=== PATIENT | male | born 1960 | race Caucasian/White ===

== ENCOUNTER 2016-09-04 08:43 | Inpatient (IN) | payer BC ==
[~2016-09-04] VITALS: Ht 182.9 cm; Wt 88.2 kg
[2016-09-04 10:02] VITALS: BP 116/75; BMI 26.5
--- NOTE | 2016-09-04 14:07 | HP ---
PATIENT: CARI YOUNGBLOOD JR MEDICAL RECORD: [id number] ACCOUNT: [id number] LOCATION:D.[id number] : 58 ADMISSION DATE: 09/04/16 HISTORY AND PHYSICAL EXAMINATION Preoperative History and Physical HISTORY OF PRESENT ILLNESS: Mr. 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 He is being admitted for left partial glossectomy and left supraomohyoid neck dissection. PAST MEDICAL HISTORY: Otherwise fairly negative. He does have some hyperlipidemia. SOCIAL HISTORY: He is a smoker and does drink alcohol. PAST SURGICAL HISTORY: None known. ALLERGIES: No known drug allergies. PHYSICAL EXAMINATION: GENERAL: He is a healthy-appearing male. FACE: Normal and symmetric. No lesions. EYES: Sclerae and conjunctivae are normal. ORAL CAVITY AND OROPHARYNX: He has an exophytic lesion on the left lateral tongue. NECK: No masses, no adenopathy. CHEST: Clear. CARDIOVASCULAR: Regular rate and rhythm, no murmur. EXTREMITIES: Normal. DIAGNOSTIC DATA: CT scan does show some prominent level 1 and 2 cervical adenopathy, nothing distinctly pathologic. IMPRESSION: Invasive squamous cell carcinoma of the left lateral tongue. PLAN: Left partial glossectomy, left supraomohyoid neck dissection. TRANSINT:[id number] Voice Confirmation ID: [id number] DOCUMENT ID: [id number] ARCELIA KU MD at 1407 CC: [id number] DICTATION DATE: 09/01/16 1009 RN DIABETES EDUCATOR: 09/01/16 1341 ADM IN [facility] [place] [id number] [place] [address]
[2016-09-04 14:21] VITALS: BP 129/84
--- NOTE | 2016-09-04 14:49 | NUR ---
RECD TO ROOM 2222 VIA CART FROM RR EMETERIO INTACT TO LEFT SIDE OF NECK OLD BLOOD NOTED ON TONGUE AT PRESENT 02 AT 2L N/C IV CONT TO LEFT HAND AT PRESENT PT DRIFTS IN AND OUT.
[2016-09-04 16:03] VITALS: BP 129/84; Ht 182.9 cm; Wt 88.2 kg
--- NOTE | 2016-09-04 16:10 | NUR ---
SLEEPING QUIETLY AT PRESENT N/C VOICED.
--- NOTE | 2016-09-04 17:16 | NUR ---
STATUS REMAINS UNCHGD AT PRESENT.
[2016-09-04 19:00] VITALS: BP 117/71
--- NOTE | 2016-09-04 20:38 | NUR ---
PATIENT SITTING UP IN BED. NO SIGNS OF DISTRESS NOTED. ALERT AND ORIENTED. SCHEDULED MEDICATION GIVEN ORDERED. DENIES NEEDS AT THIS TIME. BED LOW. CALL LIGHT IN REACH
[2016-09-05 04:00] VITALS: BP 97/67
--- NOTE | 2016-09-05 08:01 | NUR ---
AWAKE AND ALERT. ORIENTED X3. LUNGS ARE CLEAR BILATERALLY, NO COUGH NOTED. SKIN IS INTACT WITHOUT REDNESS EXCEPT INCISION TO LEFT NECK WHICH IS CLEAN AND DRY WITH CLIPS IN PLACE. BOLIVAR PATENT WITH SEROUS SANGUINESS DRAINAGE. IV TO LEFT FOREARM PATENT WITHOUT REDNESS AT INSERTION SITE. UP TO BR PER SELF. VOIDED CLEAR YELLOW URINE WITHOUT DIFFICULTY.
[2016-09-05 08:09] VITALS: BP 110/65
--- NOTE | 2016-09-05 10:00 | NUR ---
RESTING QUIETLY IN BED. DENIES NEEDS. ENCOURAGED TO GET OOB AND AMBULATE.
[2016-09-05 11:44] VITALS: BP 117/66
--- NOTE | 2016-09-05 12:32 | OP ---
PATIENT NAME: CARI DOLAN JR MEDICAL RECORD: [id number] :58 LOCATION:D.[facility] ADMISSION DATE:09/04/16 SURGEON: ARCELIA KU MD DATE OF OPERATION: 09/04/2016 PREOPERATIVE DIAGNOSIS: Left T2N0 squamous cell carcinoma of the tongue. POSTOPERATIVE DIAGNOSIS: Left T2N0 squamous cell carcinoma of the tongue. PROCEDURE: Wide local excision of the left lateral tongue and left omohyoid selective neck dissection. SURGEON: Arcelia Ku MD ANESTHESIA: General orotracheal. BLOOD LOSS: Less than 20 cc. SPECIMENS: 1. Wide local excision of the tongue with a suture superiorly. Path, intraoperative frozen sections showed negative margins and confirmed invasive squamous cell carcinoma. 2. Left neck contents including level 1, 2, 3 and 4 with sutures at each level, marked accordingly including the submental fat pad. DRAINS: A single BOLIVAR drain. COMPLICATIONS: None. DISPOSITION: Recovery stable. DESCRIPTION OF PROCEDURE: He was brought to the operating room and placed in supine position, sedated and intubated by anesthesia. He was positioned for excision of the tongue lesion. A black rubber bite guard was placed inside the right teeth and held the ET tube in place. The tip of the tongue was grasped with a Ray-Kira and the tongue and pharynx were examined. His mouth was rinsed with Peridex, irrigated and cleaned the lesion, which was a 2 cm long and about a cm and a half wide, just on the ventral aspect of the left mid portion of anterior tongue, the area was injected with 1 cc of 1% lidocaine with 1:100,000 epinephrine and then incisions were made. The incisions were made with a 15 blade with margins between 1 and 2 cm wide up on to the dorsal aspect of the tongue as well. This was taken down through the muscle and then Metzenbaum scissors were used to deeply excise the entire tumor. It was mostly exophytic. There really was not anything palpable deep to that, but it took a 2 cm deep margin underneath that as well. Bleeding was controlled with cautery. A suture was used to jean carlos it on the superior aspect. Frozen section margins were all negative. Once the bleeding was controlled, the wound was closed with horizontal 3-0 Vicryl mattress sutures to reapproximate and close the wound and then 4-0 chromic interrupted sutures were used along the entire suture line to close the mucosa. With that complete, the black plastic bite guard was removed. The head was turned to the left. It was repositioned for left neck dissection. The neck was cleaned with alcohol; the incision line was marked and injected with a total of 2 cc of 1% lidocaine with 1:100,000 epinephrine, and it was just a single apron incision from the submental fat pad up to the mastoid. The patient was prepped and draped in usual sterile fashion and incision was made OPERATIVE REPORT [id number] CARI DOLAN JR with a 15 blade. The external jugular was divided and tied with 2-0 silk ties. The incision was taken down through the platysma and flap was elevated. The facial vein was ligated with 2-0 silk ties as well and elevated with the flap to the inferior border of the sternum to the submandibular gland. The fascia and submandibular gland was reflected superiorly with the flap. There were a couple of lymph nodes close to at the facial notch, both about a cm, not distinctly pathologic, but suspicious so dissection went right up adjacent to the marginal branch of the facial nerve and dissected the contents right at the mandible down on to the sternocleidomastoid. Then, following the anterior belly of digastric anteriorly with the tonsil clamp, the submental fat pad was grasped with a small Hallie clamp and a spatula tip cautery was used to dissect out all of the fat from the submandibular fat pad and that was retracted posteriorly behind the anterior belly of digastric. All of the soft tissue was divided over the anterior belly of the digastric. Flap was elevated inferiorly as well and followed the omohyoid down. Then, posteriorly, some clamps were placed on the sternocleidomastoid pulling and retracting it laterally. The fascia was dissected down medially towards the floor of the neck. The spinal accessory nerve was easily identified and a clamp was used to follow it superiorly and some of the overlying soft tissue was divided so that it could be visualized easily. Then, the contents of level 1 were taken down. The submandibular gland was retracted inferiorly. The lingual nerve was identified. This was bipolared and divided just below the submandibular ganglion reflecting that inferiorly along with those suspicious lymph nodes. The hypoglossal nerve was identified and the duct of the gland was dissected out and divided and tied with a 2-0 tie and pulled posteriorly. With that, the lingual nerve retracted superiorly. The hypoglossal nerve was really underneath this fascia. The facial artery with some small branches were divided into the gland and tied with 3-0 ties, but the facial artery was not divided, it was left intact and the gland was easily dissected away from that. Everything was reflected posteriorly over the posterior belly of the digastric, then the spinal accessory nerve was followed all the way up, all the overlying soft tissue was divided then the tissue superior to that was grasped with a Coblator clamp and with cautery directly on to the musculature of the floor of the neck. The floor of the neck was divided down and that was all passed beneath the spinal accessory nerve inferiorly. Neck contents were dissected medially. Couple of small branches of cervical contributions to the spinal accessory nerve were divided and then dissection along the carotid sheath and jugular vein was completely dissected off and removed all of this. There were some suspicious lymph nodes at fairly level 3, but the neck dissection went all the way down deep into level 4. There were no suspicious nodes in the bottom of the neck dissection. With that complete, the neck was clean. There was really no soft tissue left behind. The wound was irrigated with saline. There was really no significant bleeding. A 10-Belarusian BOLIVAR was placed and the wound was closed with interrupted subcutaneous 3-0 Vicryl and then the skin was closed with skin clips. The wound was again irrigated, bulb was placed. Antibiotic ointment was applied. He was awakened, extubated, and transported to recovery in good condition. Counts were correct. The specimen was marked and sent for path for permanent. No complications. TRANSINT:[id number] Voice Confirmation ID: [id number] DOCUMENT ID: [id number] OPERATIVE REPORT [id number] CARI DOLAN JR, ERIC MD at 1232 CC: [id number] DICTATION DATE: 09/04/161419 SENIOR GENETIC COUNSELOR: 09/04/162008 ADM IN [facility] [address] [place] [address]
[2016-09-05] MEDS ORDERED: KEFLEX500 MG PO ×2 (12:59→13:01)
[2016-09-05] MEDS ORDERED: HYDROCODON-ACE1 EAC6 PO (13:00)
--- NOTE | 2016-09-05 14:00 | NUR ---
SL TO RIGHT FOREARM D/C WITH CATHETER INTACT. DISCHARGE INSTRUCTIONS GIVEN BOTH VERBALLY AND WRITTEN. ALL QUESTIONS ANSWERED. PATIENT VERBALIZED UNDERSTANDING OF SAME. NEEDED PRESCRIPTIONS GIVEN TO PATIENT. DISCHARGED TO HOME AMBULATORY WITH FAMILY.
== END 2016-09-05 14:10 | disposition home or self-care (01) | DRG 129 ==
LOC: D.SDCHOLD 08:43 → D.MS 08:43 → D.SDCHOLD 09:00 → D.MS 14:01
PROVIDERS: ADMIT Otolaryngology
PROC: 0CB70ZZ Excision of Tongue, Open Approach (ICD-10-PCS; principal; 2016-09-04 11:00)
PROC: 07T20ZZ Resection of Left Neck Lymphatic, Open Approach (ICD-10-PCS; principal; 2016-09-04 11:00)
DX: C02.1 Malignant neoplasm of border of tongue (principal); C77.0 Secondary and unspecified malignant neoplasm of lymph nodes of head, face and neck; F17.200 Nicotine dependence, unspecified, uncomplicated

== ENCOUNTER 2017-03-16 23:45 | Inpatient (IN) | payer BC ==
[~2017-03-16] VITALS: Ht 182.9 cm; Wt 94.8 kg
[~2017-03-16 23:45] MED LIST: HYDROCODON-ACE1 EAC6 PO; KEFLEX500 MG PO
[2017-03-17] VITALS (7 sets, daily range): BP systolic 106–146; BP diastolic 75–99; Ht 182.9 cm; Wt 94.8 kg
[2017-03-17 00:51] LABS: BASOPHILS 0.1 % (0-2); EOSINOPHILS 0 % (0-7); HEMATOCRIT 47.7 % (42.0-54.0); HEMOGLOBIN 16.5 g/dL (13.5-17.5); IMMATURE GRANULOCYTES 0.5 % (0-5); LYMPHOCYTES 3.3 % (15-50); MCH 34.8 pg (26.0-34.0); MCHC 34.6 g/dL (31.0-37.0); MCV 100.6 fL (80.0-100.0); MEAN PLATELET VOLUME 10.9 fL (7.4-10.4); MONOCYTES 9.6 % (2-11); NEUTROPHILS 86.5 % (40-80); PLATELET COUNT 162 10x3/uL (130-400); RBC 4.74 10x6/uL (4.20-6.10); RDW 13.5 % (11.5-14.5); WBC 19.5 10x3/uL (4.8-10.8)
[2017-03-17 01:05] LABS: ALBUMIN 3.5 g/dL (3.4-5.0); ANION GAP 14.7 mmol/L (8-16); BILIRUBIN - TOTAL 1.3 mg/dL (0.2-1.3); CALCIUM 8.6 mg/dL (8.5-10.1); CARBON DIOXIDE 26.2 mmol/L (21.0-32.0); CREATININE - SERUM 1.4 mg/dL (0.6-1.3); POTASSIUM - SERUM 3.9 mmol/L (3.5-5.1); PROTEIN - SERUM 7.2 g/dL (6.4-8.2)
[2017-03-17 02:29] LABS: APPEARANCE CLEAR (CLEAR); BACTERIA NONE SEEN /hpf (NONE SEEN); BILIRUBIN 1+ (NEGATIVE); COLOR DK YELLOW (YELLOW); EPITHELIAL CELLS NSEEN /hpf (0-5); GLUCOSE NEGATIVE (NEGATIVE); KETONE NEGATIVE (NEGATIVE); LEUKOCYTE ESTERASE NEGATIVE (NEGATIVE); MUCUS >1+ /lpf (NONE SEEN); NITRITE NEGATIVE (NEGATIVE); PROTEIN TRACE mg/dL (NEGATIVE); RED CELLS - URINE OCC /hpf (0-5); SPECIFIC GRAVITY 1.015 (1.005-1.020); UROBILINOGEN NORMAL (NORMAL); WHITE CELLS - URINE RARE /hpf (0-5)
--- NOTE | 2017-03-17 03:40 | NUR ---
PT ARRIVES VIA STRETCHER ACCOMPANIED BY NURSE TO ROOM. ASSISTED INTO BED. RIGHT AC WITH NS @ 125 CC/HR. INVANZ STARTED IN ER AND CONT TO INFUSE UPON ADMISSION. VSS, TEMP 99.1. UNIT ROUTINES AND PROTOCOLS DISCUSSED WITH PT - VERBALIZES UNDERSTANDING. ADMISSION ASSESSMENT AND HISTORY OBTAINED. CALL LIGHT PLACED WITHIN REACH. WILL CONT TO MONITOR.
--- NOTE | 2017-03-17 07:30 | NUR ---
ASSESSMENT COMPLETED. TELEMERTY SHOWS SR. IV RESTARTED TO LEFT AC. GARRIDO CATH PATENT TO BEDSIDE DRAINAGE. DENIES ANY NEEDS. SR UP WITH CALL LIGHT IN REACH
--- NOTE | 2017-03-17 07:45 | NUR ---
RESTING QUIETLY RESP UNLABORED NAD NOTED
[2017-03-17 11:49] LABS: INR 1.24 (0.85-1.17); PROTIME 15.5 SECONDS (11.6-15.0)
[2017-03-17 11:50] LABS: APTT 28.2 SECONDS (22.8-39.4)
--- NOTE | 2017-03-17 15:56 | NUR ---
TO SURGERY PER BED
--- NOTE | 2017-03-17 17:02 | NUR ---
OPENED AT 1700
--- NOTE | 2017-03-17 17:18 | NUR ---
OPENED AT 1700
--- NOTE | 2017-03-17 18:21 | NUR ---
STILL IN SURGERY.
--- NOTE | 2017-03-17 19:25 | NUR ---
RECIEVED SHIFT REPORT. PT IS LYING IN BED. ALERT AND ORIENTED AND ABLE TO VERBALIZE NEEDS. IV IS PATENT AND FLUIDS ARE RUNNING PER ORDER. O2 @ 4 PER NASAL CANNULA. SCD'S OFF AT THIS TIME. PT IS AMBULATORY BUT WAS INSTRUCTED TO CALL FOR ANY ASSISTANCE NEEDED. DRESSING TO ABDOMEN C/D/I. BOLIVAR DRAIN WITH SITE C/D AND COMPRESSED. PT STATES PAIN IS 2/10. NO NEEDS ARE VERBALIZED AT THIS TIME. WILL CONTINUE TO MONITOR. VISITOR IS AT THE BEDSIDE. SIDE RAILS ARE UP X 2. BED IS IN LOWEST POSITION. CALL LIGHT IS WITHIN REACH.
--- NOTE | 2017-03-17 20:00 | NUR ---
PT TO ICU FROM OR. PT ALERT AND ORIENTED X 4. PT ON 15 NRB O2 SAT 95%. S1S2 NOTED ST PER CM. BOWEL SOUNDS HYPO ACTIVE. PT HAS DRSG TO MID ABD WITH BOLIVAR. BOLIVAR DRAINING BLOODY OUTPUT. GARRIDO/SCDS IN PLACE. SEE SHIFT ASSESSMENT FOR FURTHER DETAIL.
--- NOTE | 2017-03-17 21:30 | NUR ---
PT FAMILY AT BEDSIDE. UPDATE PROVIDED AT THIS TIME.
--- NOTE | 2017-03-17 23:20 | NUR ---
NO CHANGES PER REASSESSMENT. PT ALERT AND ORIENTED. STATES PAIN IS WELL CONTROLLED AT THIS TIME. DRSG TO ABD REMAINS CDI. BOLIVAR DRAIN EMTIED X 1 AND RECOMPRESSED. VSS. WILL MONITOR.
[2017-03-18] VITALS (14 sets, daily range): BP systolic 95–125; BP diastolic 56–98
--- NOTE | 2017-03-18 01:00 | NUR ---
PT REST QUIETLY IN BED. VOICES NO NEEDS AT THIS TIME. VSS. WILL TRACE.
--- NOTE | 2017-03-18 03:00 | NUR ---
ICE CHIPS PROVIDED TO PT. PT TOLERATES WELL. NO CHANGES PER REASSESS. VSS.
[2017-03-18 04:27] LABS: BASOPHILS 0.1 % (0-2); EOSINOPHILS 0 % (0-7); HEMATOCRIT 38.7 % (42.0-54.0); IMMATURE GRANULOCYTES 0.4 % (0-5); LYMPHOCYTES 5.9 % (15-50); MCH 34.3 pg (26.0-34.0); MCHC 33.6 g/dL (31.0-37.0); MCV 102.1 fL (80.0-100.0); MONOCYTES 7.6 % (2-11); PLATELET COUNT 151 10x3/uL (130-400); RDW 13.4 % (11.5-14.5); WBC 15.3 10x3/uL (4.8-10.8)
--- NOTE | 2017-03-18 04:27 | NUR ---
GARRIDO CARE PERFORMED AND STICKER APPLIED TO GARRIDO BAG.
[2017-03-18 04:36] LABS: RBC 3.79 10x6/uL (4.20-6.10)
[2017-03-18 04:42] LABS: CALC OSMOLALITY 268 mosm/kg (275-300); CALCIUM 8.1 mg/dL (8.5-10.1); CARBON DIOXIDE 25.3 mmol/L (21.0-32.0); CHLORIDE - SERUM 100 mmol/L (98-107); GLUCOSE 125 mg/dL (74-106); POTASSIUM - SERUM 4.2 mmol/L (3.5-5.1); SODIUM 133 mmol/L (136-145); UREA NITROGEN 19 mg/dL (7-18); eGFR NON AFRICAN AMERICAN 82 mL/min (90-120)
--- NOTE | 2017-03-18 06:00 | NUR ---
PT STATES MOUTH IS DRY. MOUTH MOISTERIZER AND RINSE PROVIDED. VSS.
--- NOTE | 2017-03-18 08:30 | NUR ---
REPOSITIONS SELF IN BED
--- NOTE | 2017-03-18 08:52 | NUR ---
DR. PHELPS AT BEDSIDE. UPDATED PT.
--- NOTE | 2017-03-18 08:53 | NUR ---
AWAKE AND ALERT. ANSWER QUESTIONS OF DR. PHELPS APPORPRIATLY. A&O X3. ON 4L NC. NO DISTRESS. LUNGS CTA. BS ABSENT IN UPPER TWO QUADS AND HYPOACTIVE IN LOWER TWO QUADS. GARRIDO, PATENT TO GRAVITY WITH JAYLYN URINE IN TUBING AND STORAGE. SCD'S. JEAN-BAPTISTE. FOLLOWS COMMANDS. PPP. MIDLINE ABD INCISION. DRSG WITH SOME OLD DRIED BLOOD. NOTHING NEW. CLWR. CPOC.
--- NOTE | 2017-03-18 09:23 | NUR ---
HIS SON, GISELLE CALLED AND I UPDATED HIM AFTER GETTING PERMISSION TO DO SO.
--- NOTE | 2017-03-18 10:07 | NUR ---
REPOSITIONS SELF IN BED.
--- NOTE | 2017-03-18 10:22 | NUR ---
WAITING ON ROOM TO TRANSFER OUT OF ICU.
--- NOTE | 2017-03-18 10:50 | NUR ---
GARRIDO CATH DC'D FROM BLADDER
--- NOTE | 2017-03-18 11:04 | NUR ---
REPORT CALLED TO DEBBIE AND PTBonnie READY TO MOVE TO 2204.
--- NOTE | 2017-03-18 11:25 | NUR ---
TRANSPORTED TO ROOM 2205 VIA WITHOUT INCIDENT.
--- NOTE | 2017-03-18 11:30 | NUR ---
RECIEVED TO ROOM 2205 FROM ICU VIA WC. IV TO L AC PATENT. NS INFUSING AT 125 CC/HR VIA PUMP. CLINICIAN ONCOLOGY DILAUDID 0.2-10-4 IN USE FOR PAIN CONTROL. DRESSING TO ABDOMEN INTACT. BOLIVAR X 1 TO R ABDOMEN. SCDS IN USE TO BILAT LEGS. O2 4L NC IN USE. DENIES ANY NEEDS AT PRESENT.
--- NOTE | 2017-03-18 17:30 | NUR ---
VISITING WITH FAMILY. DENIES ANY NEEDS AT THIS TIME.
--- NOTE | 2017-03-18 21:17 | NUR ---
SHIFT ASSESSMENT COMPLETED. NIGHT MEDS GIVEN WITH NO PROBLEMS. NO NEEDS ARE VOICED. WILL MONITOR. SIDE RAILS X 2. BED LOW. CALL LIGHT IN REACH.
[2017-03-19] VITALS: BP 110/71
[2017-03-19 04:00] VITALS: BP 121/76
[2017-03-19 05:54] LABS: BASOPHILS 0.1 % (0-2); EOSINOPHILS 2.5 % (0-7); HEMATOCRIT 34.7 % (42.0-54.0); HEMOGLOBIN 11.6 g/dL (13.5-17.5); IMMATURE GRANULOCYTES 0.5 % (0-5); LYMPHOCYTES 9.7 % (15-50); MCH 33.9 pg (26.0-34.0); MCHC 33.4 g/dL (31.0-37.0); MCV 101.5 fL (80.0-100.0); MEAN PLATELET VOLUME 11.3 fL (7.4-10.4); MONOCYTES 5.8 % (2-11); NEUTROPHILS 81.4 % (40-80); PLATELET COUNT 157 10x3/uL (130-400); RBC 3.42 10x6/uL (4.20-6.10); RDW 13.3 % (11.5-14.5)
[2017-03-19 06:01] LABS: WBC 8.8 10x3/uL (4.8-10.8)
[2017-03-19 06:07] LABS: CALCIUM 7.7 mg/dL (8.5-10.1); CARBON DIOXIDE 23.8 mmol/L (21.0-32.0); CHLORIDE - SERUM 104 mmol/L (98-107); CREATININE - SERUM 0.9 mg/dL (0.6-1.3); GLUCOSE 82 mg/dL (74-106); SODIUM 137 mmol/L (136-145); eGFR NON AFRICAN AMERICAN > 90 mL/min (90-120)
[2017-03-19 06:08] LABS: CALC OSMOLALITY 276 mosm/kg (275-300); POTASSIUM - SERUM 3.4 mmol/L (3.5-5.1); UREA NITROGEN 24 mg/dL (7-18)
--- NOTE | 2017-03-19 07:00 | NUR ---
PT REC'D FROM [facility]. RESTING IN BED WATCHING TV. AAOX4. RATING CURRENT PAIN IN ABD 08/15. STATES, "I DON'T REALLY HURT. I AM MORE SORE THAN ANYTHING." REMINDED PT OF DILAUDID TONGUE AND GROOVE MACHINE FEEDER. PIV TO L AC FREE OF REDNESS AND SWELLING. REGULAR HEART RATE AND RHYTHM. LUNG SOUNDS CLEAR AND EQUAL BILAT. O2 OFF AT THIS TIME. BOWEL SOUNDS HYPOACTIVE X4 QUADS. ABD ROUND AND FIRM TO PALPATION. SOME GUARDING ON PALPATION, BUT PT SAYS, "IT'S NOT TOO BAD. I'M JUST SORE AND IT HURTS MORE WHEN I MOVE." DRESSING TO MIDLINE ABD INCISION CDI. SCANT AMOUNT OF OLD DRAINAGE OUTLINED WITH MARKER TIMED AND INITIALED. BANDAIDS TO X2 LAP SITES CDI. DRESSING TO BOLIVAR DRAIN TO R ABD CDI. 90CC'S OF SEROUS FLUID EMPTIED FROM COLLECTION BULB AT THIS TIME. COMPRESSED AND REPOSITIONED. BED LOW, CALL LIGHT IN REACH, DENIES NEEDS. CPOC.
--- NOTE | 2017-03-19 07:55 | NUR ---
PATIENT IN LOW KANG POSITION RESTING WITH EYES CLOSED. RESPIRATIONS EVEN AND UNLABORED. SIDE RAILS UP X2. BED IN LOW POSITION. CALL LIGHT IN REACH.
[2017-03-19 08:38] VITALS: BP 130/83
--- NOTE | 2017-03-19 09:45 | NUR ---
MORNING MEDS PASSED AT THIS TIME. CLD TRAY AT BEDSIDE. PT TOLERATING WELL AND WANTING TO KNOW WHEN HE CAN HAVE REAL FOOD. EXPLAINED TO PT THAT AFTER A BIG ABDOMINAL SURGERY THAT MOST SURGEONS LIKE TO TAKE IT SLOW WHEN ADVANCING A PT'S DIET. PT STATES HE UNDERSTANDS. BED LOW, CALL LIGHT IN REACH, DENIES NEEDS. CPOC.
--- NOTE | 2017-03-19 11:11 | NUR ---
Patient Name: CARI DOLAN Admission Status: ER Accout number: [id number] Admission Date: 03-17-2017 : 1960 Admission Diagnosis: Attending: ISIDORO Current LOS: 2 Anticipated DC Date: Planned Disposition: Home Primary Insurance: [employer] Discharge Planning Comments: CM met with patient to assess discharge planning needs. Patient states that he lives independently in [place] alone, but one of his sons will be the one to take him home with the time comes. He denies any use of HH or DME & does not this he will need it when he goes home. He does not have any steps to enter his home and states his home is a safe environment to return too. CM will continue to follow and assist as needed with discharge planning needs. PCP: Rajiv Greene in [place] Zachery Dorsey ([place]) [phone] Reflector Driller And Deburrer: Ashtyn Boo * Is the patient Alert and Oriented? Yes 0 * How many steps to enter\exit or inside your home? 0 0 * PCP RAJIV 0 * Pharmacy [facility] [place] 0 * Preadmission Environment Home Alone 0 * ADLs Independent 0 * Equipment None 0 * List name and contact numbers for known caregivers / representatives who currently or will assist patient after discharge: ZACHERY DOLAN ([place]) [phone] ROSARIO DOLAN([place]) [phone] 0 * Community resources currently utilized None 0 * Additional services required to return to the preadmission environment? No 0 * Can the patient safely return to the preadmission environment? Yes 0 * Has this patient been hospitalized within the prior 30 days at any hospital? No 0 Grand Total: 0
--- NOTE | 2017-03-19 12:09 | NUR ---
NUTRITION MONITORING & EVAL CHART REVIEWED. PT CURRENTLY NPO. WILL MONITOR DIET ADVANCEMENT, PO INTAKE. RD FOLLOWING
--- NOTE | 2017-03-19 12:34 | NUR ---
APPROXIMATELY 130CC'S OF SEROUS FLUID DRAINED FROM BOLIVAR DRAIN AT THIS TIME. COLLECTION BULB COMPRESSED AND REPOSITIONED. BED LOW, CALL LIGHT IN REACH, DENIES NEEDS. CPOC.
[2017-03-19 13:30] VITALS: BP 143/89
--- NOTE | 2017-03-19 15:01 | NUR ---
RECONNECTED TO IVF AFTER SHOWERING SELF. NO COMPLAINTS. BED LOW, CALL LIGHT IN REACH, DENIES NEEDS. CPOC.
[2017-03-19 17:05] VITALS: BP 116/73
--- NOTE | 2017-03-19 19:25 | NUR ---
RECIEVED SHIFT REPORT. PT IS LYING IN BED. ALERT AND ORIENTED AND ABLE TO VERBALIZE NEEDS. IV IS PATENT AND FLUIDS ARE RUNNING PER ORDER. O2 @ 4 PER NASAL CANNULA PRN. SCD'S OFF AT THIS TIME. DRESSING TO ABDOMEN C/D/I. BOLIVAR DRAIN TO RIGHT ABDOMEN C/D/I AND WITH BULB COMPRESSED. PT STATES PAIN IS 2/10. PT IS AMBULATORY BUT WAS INSTRUCTED TO CALL FOR ANY ASSISTANCE NEEDED. NO NEEDS ARE VERBALIZED AT THIS TIME. WILL CONTINUE TO MONITOR. SIDE RAILS ARE UP X 2. BED IS IN LOWEST POSITION. CALL LIGHT IS WITHIN REACH.
[2017-03-19 20:00] VITALS: BP 132/78
--- NOTE | 2017-03-19 21:55 | NUR ---
SHIFT ASSESSMENT COMPLETED. PT IV TO RIGHT AC LEAKING. D/C'D WITH CATHETER TIP INTACT. NEW IV RESITED TO RIGHT UPPER ARM X 2 ATTEMPTS. 22G. GOOD BLOOD RETURN. FLUSHES W/O DIFFICULTY. FLUIDS HOOKED BACK UP PER ORDER. NIGHT MEDS GIVEN WITH NO PROBLEMS. NO NEEDS ARE VOICED. WILL MONITOR. SIDE RAILS X 2. BED LOW. CALL LIGHT IN REACH.
[2017-03-20 04:00] VITALS: BP 138/83
[2017-03-20 06:02] LABS: BASOPHILS 0.2 % (0-2); EOSINOPHILS 5.8 % (0-7); HEMATOCRIT 35.7 % (42.0-54.0); HEMOGLOBIN 12.1 g/dL (13.5-17.5); IMMATURE GRANULOCYTES 0.9 % (0-5); LYMPHOCYTES 12.7 % (15-50); MCH 33.9 pg (26.0-34.0); MCHC 33.9 g/dL (31.0-37.0); MEAN PLATELET VOLUME 11.4 fL (7.4-10.4); MONOCYTES 7.3 % (2-11); NEUTROPHILS 73.1 % (40-80); PLATELET COUNT 188 10x3/uL (130-400); RBC 3.57 10x6/uL (4.20-6.10); RDW 13.1 % (11.5-14.5)
[2017-03-20 06:07] LABS: WBC 6.4 10x3/uL (4.8-10.8)
[2017-03-20 06:26] LABS: CALC OSMOLALITY 282 mosm/kg (275-300); CALCIUM 7.9 mg/dL (8.5-10.1); CARBON DIOXIDE 25.6 mmol/L (21.0-32.0); CHLORIDE - SERUM 106 mmol/L (98-107); CREATININE - SERUM 0.8 mg/dL (0.6-1.3); GLUCOSE 98 mg/dL (74-106); POTASSIUM - SERUM 3.3 mmol/L (3.5-5.1); SODIUM 141 mmol/L (136-145); UREA NITROGEN 19 mg/dL (7-18); eGFR NON AFRICAN AMERICAN > 90 mL/min (90-120)
[2017-03-20 09:23] VITALS: BP 129/74
[2017-03-20 12:59] VITALS: BP 139/85
--- NOTE | 2017-03-20 15:30 | NUR ---
PATIENT IN LOW KANG POSITION RESTING WITH EYES CLOSED. RESPIRATIONS EVEN AND UNLABORED. SIDE RAILS UP X2. BED IN LOW POSITION. CALL LIGHT IN REACH.
[2017-03-20] MEDS ORDERED: HYDROCODONE-APA1 TAB PO (15:51)
[2017-03-20] MEDS ORDERED: BACTRIM DS TABL1 TAB PO (15:51)
--- NOTE | 2017-03-20 15:52 | OP ---
PATIENT NAME: CARI DOLAN JR MEDICAL RECORD: [id number] :58 LOCATION:D.MS [id number] ADMISSION DATE:03/17/17 SURGEON: KAMERON PHELPS MD DATE OF OPERATION: 03/17/2017 PREOPERATIVE DIAGNOSES: 1. Acute appendicitis with localized peritonitis. 2. Intraabdominal abscess. 3. Sepsis secondary to acute appendicitis. POSTOPERATIVE DIAGNOSES: 1. Acute appendicitis with localized peritonitis. 2. Intraabdominal abscess. 3. Sepsis secondary to acute appendicitis. PROCEDURE: HALS ileocecectomy. SURGEON: Kameron Phelps MD REPORT OF PROCEDURE: The patient's abdomen was prepped and draped in sterile fashion. A cutdown was made on the superior aspect of the umbilicus, 0 Vicryls were placed in the fascia bilaterally and the fascia was incised with 15-blade. I then bluntly entered the peritoneal cavity and placed a 12-mm Norberto port. Under direct visualization, a 5 mm trocar was placed in the left lower quadrant and another was placed in the suprapubic region. The patient had a lot of inflammatory adhesions present in the right lower quadrant. We bluntly teased these down and eventually came into a large pocket of pus. This was suctioned out quickly and irrigated out until there was good clear return of fluid. The patient had some firm chronic adhesions that were present at the small bowel and at the colon to the lateral abdominal wall. These were taken down with blunt and sharp dissection. Eventually, I was able to find the patient's appendix that was grossly enlarged and necrotic. As I continued my dissection of the appendix, there was spillage of intra-appendiceal contents. As I got to the base of the appendix near the cecum, I noted that the appendix was completely necrosed off of the cecum. I could not see a distinct opening in the cecum, but the cecum was very inflamed and had a necrotic appearance also. As I dissected more distally on the cecum and right colon, the colon began to look more normal. I did not see any evidence of any creeping fat that would suggest Crohn's disease. The patient's small bowel appeared to be normal, outside of the inflammatory changes from being near the abscess cavity. Eventually, we decided that we have to perform ileocecectomy to safely remove this necrotic segment. At this point, the 12-mm trocar was removed and then incision was extended superiorly and the GelPort was inserted. A separate 5-mm trocar was placed in the right upper quadrant. With this, I was able to take down the white line of Toldt and the hepatic flexure ligaments and mobilized the colon medially. We freed up any of the small bowel adhesions down towards the pelvis and at this point, we had the colon freely mobilized. We then eviscerated the colon through the wound protector. The small bowel was transected about 6 cm proximal to the ileocecal valve and the right colon was transected in a grossly normal area about 5 cm just distal to the cecum. The mesentery was taken down with sequential clamp in tie technique with occasional interrupted 2-0 silks. We then performed a [id number] anastomosis with a 70 blue load KATHY stapler. The enterotomies were then closed with a 30 blue load TA stapler. We oversewed the staple lines using Lemberted 3-0 silks. The anastomosis was repositioned back in the patient's right lower quadrant and covered up with omentum. We then OPERATIVE REPORT [id number] CARI DOLAN JR irrigated out the abdomen thoroughly with about 3 liters of normal saline. We went back in microscopically and I could see no evidence of any bleeding or leakage present. The pelvis and right lower quadrant were thoroughly irrigated out until there was good clear return of fluid. At this point, 19-Albanian Rosales drain was inserted through the right upper quadrant trocar site and rested in the right pericolic gutter down towards the pelvis. This was sutured into place with 4-0 nylon. The GelPort and wound protector were removed and all gloves and gowns were changed. We closed the fascia using running #1 looped PDS times 2. The wound was then irrigated out with normal saline and the subcutaneous tissues were reapproximated with interrupted 3-0 Vicryl. The skin was then closed with hemalatha and dressed appropriately. COMPLICATIONS: None. CONDITION: Stable. ANESTHESIA: General endotracheal. BLOOD LOSS: 50 mL. TRANSINT:[id number] Voice Confirmation ID: [id number] DOCUMENT ID: [id number] KAMERON PHELPS MD at 1552 CC: [id number] DICTATION DATE: 03/17/17 183 ORGAN RECOVERY COORDINATOR: 03/17/171916 ADM IN [facility] [address] [id number]
[2017-03-20 16:58] VITALS: BP 130/84
--- NOTE | 2017-03-20 19:54 | NUR ---
DISCHARGE INSTRUCTIONS DISCUSSED AT THIS TIME. NO QUESTIONS OR CONCERNS VOICED AT THIS TIME. PIV TO R UPPER ARM DC'D WITH CATHETER INTACT. ESCORTED OUT VIA WC.
== END 2017-03-20 19:55 | disposition home or self-care (01) | DRG 853 ==
LOC: D.ER 23:45 → D.MS 03-17 02:56 → D.M2 03-17 02:56 → D.ICU 03-17 02:56 → D.MS 03-18 11:28
PROVIDERS: Emergency Medicine; ADMIT Surgery
PROC: 0DTH4ZZ Resection of Cecum, Percutaneous Endoscopic Approach (ICD-10-PCS; principal; 2017-03-17 16:00)
DX: A41.9 Sepsis, unspecified organism (principal); K35.3 Acute appendicitis with localized peritonitis